=== PATIENT | female | born 1970 | race African-American/Black ===

== ENCOUNTER 2025-02-12 14:29 | Emergency (ER) | payer MEDICAID, SELFPAY ==
--- NOTE | ~2025-02-12 | XR_ITS ---
CLINICAL HISTORY: chest pain. coughing. pneumonia 1 view chest x-ray. Comparison: None Findings: No consolidation or effusion. Cardiac and mediastinal contours appear unremarkable. Bones unremarkable. Impression: 1. No acute pulmonary disease. This document has been electronically signed by: El Benitez MD on 02/12/2025 15:44:42
--- NOTE | 2025-02-12 14:31 | ECG_ITS ---
Test Reason : CHEST PAIN Blood Pressure : */* mmHG Vent. Rate : 74 BPM Atrial Rate : 74 BPM P-R Int : 146 ms QRS Dur : 84 ms QT Int : 386 ms P-R-T Axes : 62 57 35 degrees QTcB Int : 428 ms Normal sinus rhythm with sinus arrhythmia Normal ECG No previous ECGs available Referred By: Eladio Vizcaino Electronically Signed By: LILA DANG MD
[2025-02-12 14:50] VITALS: BP 150/77; PULSE 77; RESP 18; TEMP 36.6; O2SAT 100; BMI 28.1
--- NOTE | 2025-02-12 14:55 | ED_ITS ---
HPI - General Adult General Chief complaint: Chest Pain Stated complaint: CP, back pain, L ear pain, congestion, sob Time Seen by Provider: 02/12/25 16:52 Source: patient, family (Spouse) and deicer inspector pneumatic Mode of arrival: ambulatory Limitations: no limitations History of Present Illness ED Provider: DR. Gonzalez HPI narrative: A 54-year-old female came in today for evaluation of left ear pain, patient had a remote trauma to left ear at age of 13 left her with chronic left ear pain since she was 13 years old, pain lately has been worsening more severe, patient has not seen ENT doctor since then, presented today with left ear pain 10/10, unable to hear from her left ear, no drainage, no blood coming out of the left ear. No fever, chills. Patient declined having chest pain or abdominal pain around device is stated in triage's note. Related Data Previous Rx's ?Medication ?Instructions ?Recorded amoxicillin 875 mg-potassium 1 tab PO BID #20 tabs 12/29 clavulanate 125 mg tablet ciprofloxacin 0.2 %-hydrocortisone 3 drp otic (ear) le ft Q12H 7 days 02/12/25 1 % ear drops,suspension (Cipro HC) #10 mL Allergies Allergy/AdvReac Type Severity Reaction Status Date / Time No Known Allergies Allergy Verified 02/12/25 14:55 Review of Systems 2 Review of Systems: All other systems are reviewed and are negative Constitutional: Reports as per HPI and Reports no additional constitutional complaints Eyes: Reports as per HPI and Reports no additional eye complaints Reports system reviewed and no additional complaints, except as documented Cardiovascular: Reports as per HPI and Reports no additional cardiovascular complaints Respiratory: Reports as per HPI and Reports no additional respiratory complaints Gastrointestinal: Reports as per HPI and Reports no additional gastrointestinal complaints Genitourinary: Reports no additional female genitourinary complaints Musculoskeletal: Reports no additional musculoskeletal complaints Skin/Breast: Reports system reviewed and no additional complaints, except as docu Psychiatric: Reports no additional psychiatric complaints Endocrine: Reports no additional endocrine complaints Hematologic/Lymphatic: Reports no additional hematologic/lymphatic complaints Allergic/Immunologic: Reports no additional allergic/immunologic complaints Reports system reviewed and no additional complaints, except as documented and Reports Abnormal speech present PMFSH Social History Social History Smoked in Last 30 Days: Yes Use of substances other than those prescribed or required for medical reasons: No Advance Directives: No Advance Directives Information Provided: Yes Do you have a plan to hurt others: No Plan Patient : No Physical Exam ED Vital Signs: Vital Signs - 24 hr 02/12/25 14:50 02/12/25 15:42 02/12/25 17:43 Temperature 98 F 99.1 F 99.1 F Pulse Rate 77 78 78 Respiratory Rate 18 20 20 Blood Pressure 150/77 H 133/69 133/69 Pulse Oximetry 100 100 100 Oxygen Delivery Method Room Air Room Air Room Air BMI result Body Mass Index 28.1 Vital signs have been reviewed and appear to be correct. Blood pressure elevated. Heart rate normal. Respiratory rate normal. Temperature normal. Oxygen saturation normal. Appearance: Alert. Oriented X3. No acute distress. Head: Normal external exam. Normocephalic. Atraumatic. No Garza signs noted. No raccoon eyes noted Eyes: PERRLA. EOMI. Conjunctiva and sclera normal. Eyelids normal. ENT: Left ear exam: Erythema in external left ear canal, erythema of the left TM, no mastoid erythema or tenderness, no discharge or bleed. Pharynx normal. Uvula midline. Moist mucous membranes. No trismus noted. No drooling noted. No muffled voice noted. Neck: Normal inspection. Neck supple. FROM. No adenopathy. Thyroid Normal. No meningeal signs. No neck mass noted. CVS: Normal heart rate and rhythm. Heart sound normal. No murmurs noted. Pulses normal throughout. Respiratory: No respiratory distress. Painless inspiration. Breath sounds normal. No wheezes/rales/rhonchi noted. Chest nontender. No accessory muscle usage noted or decreased air movement noted. Abdomen: Soft and nontender. Bowel sounds normal in all 4 quadrants. No distention noted. No organomegaly noted. No visible injury noted. Back: No CVA tenderness. Full range of motion noted. Skin: Skin warm and dry. Normal skin color. Normal skin turgor. No rashes/lesions/lacerations noted. Extremities: No lower extremity edema. Extremities exhibit normal range of motion. Extremities nontender. Neuro: Oriented X 3. Cranial nerve exam: II-XII are grossly intact No motor deficit. No sensory deficit. Reflexes normal. Course Course Course Narrative: RME: 54-year-old female presents to ED for chest pain, coughing, ear pain, sore throat, body aches and chills. Patient states chest pain and mild shortness of breath. EKG radiating ordered. Labs x-ray ordered. Reevaluation(s) Reevaluation #1: 54-year-old female s/p chronic left ear pain presented with worsening of left ear pain. Physical exam is consistent with otitis externa given the complicated history of left ear pain since age of 13 will start the patient on Augmentin and Cipro otic suspension. NSAIDs, and to follow-up with ENT as an outpatient. Using the deicer inspector pneumatic service patient declined chest pain or abdominal pain however chest pain workup was initiated before I have seen the patient and is negative. Time: 17:10 Medications Administered Discontinued Medications Generic Name Dose Route Start Last Admin Trade Name Freq PRN Reason Stop Dose Admin Amoxicillin/Clavulanate Potassium 875 mg 02/12/25 17:05 02/12/25 17:33 Amoxicillin/Potassium Clav 875 Mg Tablet PO 02/12/25 17:06 875 mg ONCE ONE Administration Ibuprofen 800 mg 02/12/25 17:05 02/12/25 17:36 Ibuprofen 800 Mg Tablet PO 02/12/25 17:06 800 mg ONCE ONE Administration Medical Decision Making Differential Diagnosis Differential Diagnoses: The differential diagnosis associated with the presentation includes (Otitis media, otitis externa, mastoiditis, mastoiditis.) Admission/Observation Consideration of admission/observation: Escalation of care including admission/observation considered Lab Data MDM Lab Attestation statement: I reviewed the patient's lab results. 02/12/25 15:04 02/12/25 15:04 Labs: Lab Results 02/12/25 Range/Units 15:04 WBC 8.8 (4.8-10.8) X10*3/uL RBC 4.02 L (4.20-5.50) X10*6/uL Hgb 12.5 (12.0-16.0) g/dl Hct 37.4 (37.0-47.0) % MCV 93.0 (80.0-98.0) fL MCH 31.1 (27.0-33.0) pg MCHC 33.4 (31.0-35.0) g/dl RDW 13.2 (11.0-16.0) % Plt Count 323 (160-400) X10*3/uL MPV 9.3 L (9.4-12.3) fL Immature Gran % (Auto) 0.3 (0.0-0.4) % Neut % (Auto) 65.0 (45-73) % Lymph % (Auto) 23.1 (20-40) % [place] % (Auto) 3.2 (2-11) % Eos % (Auto) 7.5 H (0-4) % Baso % (Auto) 0.9 (0-2) % Lymph # (Auto) 2.0 (1.2-4.9) X10*3/uL [place] # (Auto) 0.3 (0.1-1.2) X10*3/uL Eos # (Auto) 0.7 H (0.0-0.4) X10*3/uL Baso # (Auto) 0.1 (0.0-0.2) X10*3/uL Abs Immat Gran (auto) 0.03 (0.00-0.03) X10*3/uL Absolute Neuts (auto) 5.8 (2.0-8.3) x10*3/uL Absolute Nucleated RBC 0.000 (0.0-0.012) X10*3/uL Nucleated RBC % (auto) 0.0 (0.0-0.2) /100WBC PT 11.7 (11.2-13.5) SEC INR 1.0 (0.9-1.1) APTT 26.6 L (26.7-34.1) SEC Sodium 142 (135-145) mmol/L Potassium 3.1 L (3.3-5.1) mmol/L Chloride 105 (96-108) mmol/L Carbon Dioxide 27 (22-29) mmol/L Anion Gap 13 (12-20) BUN 10 (9-16) mg/dL Creatinine 0.64 (0.5-1.4) mg/dL Estim Creat Clear Calc 119.0 Estimated GFR > 60 Random Glucose 129 H (60-115) mg/dL Calcium 8.8 (8.4-10.2) mg/dL Total Bilirubin 0.5 (0.0-1.0) mg/dL AST 28 (5-31) U/L ALT 16 (0-31) U/L Alkaline Phosphatase 63 (39-117) U/L Troponin I High Sens < 2.7 (<3.5-17.0) ng/L NT-Pro-B Natriuret Pep 244.2 (<300) pg/mL Total Protein 6.1 L (6.5-8.0) g/dL Albumin 3.6 (3.5-5.0) g/dL Influenza Type A (PCR) NEGATIVE (Negative) Influenza Type B (PCR) NEGATIVE (Negative) RSV RNA Qual (PCR) NEGATIVE (Negative) SARS-CoV-2 RNA (RT-PCR) NEGATIVE (Negative) S. pyogenes GrpA NANO Negative (Negative) Discharge Plan Discharge Clinical Impression: Otitis externa, Otitis media Patient Disposition: Home, Self-Care Instructions: Ear Infection (ED) Additional Instructions: Follow-up with your ENT doctor, take the antibiotic as prescribed and finish course. If you can not get to our ENT doctor contact your primary doctor and ask for referral. Prescriptions: New amoxicillin-pot clavulanate 875-125 mg tablet 1 tab PO BID Qty: 20 0RF Cipro HC 0.2-1 % drops,suspension 3 drp otic (ear) left Q12H 7 Days Qty: 10 0RF Referrals: Guzman Gonzalez [Physician, Ear, Nose, Throat] Suzi Rg PA-C [Primary Care Provider, Internal Medicine] Interventions: ED Discharge Assessment Last Done: 02/12/25 17:43 Discharge Date/Time: 02/12/25 17:49 Print Language: Zimbabwean
[2025-02-12 15:10] LABS: MANUAL DIFF FLAG NO
[2025-02-12 15:11] LABS: Hematocrit 37.4 % (37.0-47.0); Hemoglobin 12.5 g/dl (12.0-16.0); Imm Gran Abs Auto 0.03 X10*3/uL (0.00-0.03); Imm Gran Pct Auto 0.3 % (0.0-0.4); Lymphocytes Absolute Auto 2.0 X10*3/uL (1.2-4.9); Mean Corpuscular HGB Conc 33.4 g/dl (31.0-35.0); Mean Corpuscular Hemoglobin 31.1 pg (27.0-33.0); Mean Corpuscular Volume 93.0 fL (80.0-98.0); NRBC Abs Auto 0.000 X10*3/uL (0.0-0.012); NRBC Pct Auto 0.0 /100WBC (0.0-0.2); Platelet Count 323 X10*3/uL (160-400); Red Blood Count 4.02 X10*6/uL (4.20-5.50); White Blood Count 8.8 X10*3/uL (4.8-10.8)
[2025-02-12 15:18] LABS: IDNOW Serial# 55D5AD1C; Strep A Nucleic Acid Negative (Negative)
[2025-02-12 15:42] VITALS: BP 133/69; PULSE 78; RESP 20; TEMP 37.3; O2SAT 100
[2025-02-12 15:42] LABS: Troponin-I High Sensitivity < 2.7 ng/L (<3.5-17.0)
[2025-02-12 15:54] LABS: INTERNATIONAL NORM RATIO 1.0 (0.9-1.1); Prothrombin Time 11.7 SEC (11.2-13.5)
[2025-02-12 15:56] LABS: Partial Thromboplastin Time 26.6 SEC (26.7-34.1)
--- OUTSIDE RECORDS SUMMARY | 2025-02-12 16:07 | XMS_ITS | Clinical Summary ---
Author Organization [employer] Address [address] [place] [address] Care Team Providers Care Egg Smeller Name Role Phone Unavailable Primary Care Provider Unavailabl e Social History Tobacco Use Types Packs/Day Years Used Date Smoking Tobacco: Never Assessed Comments Unknown Sex and Gender Information Value Date Recorded Sex Assigned at Not on file Legal Sex Female 9:18 PM EDT Gender Identity Not on file Sexual Orientation Not on file Plan of Treatment Health Maintenance Due Date Last Done Comments CT Colonography 1971 Colonoscopy 1971 Colorectal Cancer Screening 1971 Depression Screening 1971 FIT DNA/Cologuard 1971 FIT 1971 FOBT 1971 Lipid Panel 1971 SDOH Screening 1971 Sigmoidoscopy 1971 Disability Screening 1971 Alcohol/Substance Use Screening 1983 Tobacco Screening 1983 Hepatitis C Screening 1989 Pap Smear 1992 Cervical Cancer Screening 2001 HPV/Cotest 2001 Mammogram 2011 Hepatitis B Vaccines (2 of 2 - CpG 2-dose series) 09/04/2023 08/07/2023 COVID-19 Vaccine (2024-2 6 season) 2024 07/25/2021, 09/15/2020, 08/18/2020 Influenza Vaccine (#1) 2024 DTaP/Tdap/Td Vaccines (2 - T d or Tdap) 06/13/2032 06/13/2022 RSV Patients and Patients Aged 60 years or older (1 - 1-dose 75+ series) 2046 HIV Screening Completed 06/13/2022 Pneumococcal Vaccine: 50+ Years Completed 06/13/2022 Zoster Vaccines Completed 11/16/2024, 08/07/2023 HIB Vaccines Aged Out No longer eligi ble based on patient's age to complete this topic HPV Vaccines Aged Out No longer eligi ble based on patient's age to complete this topic Hepatitis A Vaccines Aged Out No long er eligible based on patient's age to complete this topic IPV Vaccines Aged Out No longer eligi ble based on patient's age to complete this topic Meningococcal B Vaccine Aged Out No l onger eligible based on patient's age to complete this topic Meningococcal Vaccine Aged Out No loretta alyssa eligible based on patient's age to complete this topic RSV under 20 months Aged Out No longe r eligible based on patient's age to complete this topic Rotavirus Vaccines Aged Out No longer eligible based on patient's age to complete this topic
--- OUTSIDE RECORDS SUMMARY | 2025-02-12 16:07 | XMS_ITS | Clinical Summary ---
Author Organization [facility] Address [address] [place] [address] Phone Care Team Providers Care Legal Administrator Name Role Phone Physician, No Pcp Primary Care Provider Unavaila ble Social History Tobacco Use Types Packs/Day Years Used Date Smoking Tobacco: Never Assessed Comments Unknown Sex and Gender Information Value Date Recorded Sex Assigned at Not on file Legal Sex Female 11:13 PM EST Gender Identity Not on file Sexual Orientation Not on file Plan of Treatment Health Maintenance Due Date Last Done Comments Breast Cancer Screening 1971 Colorectal Cancer Screening: Colonoscopy 1971 Cervical Cancer Screening: P ap Smear 1992 HIV Screening 03/09/2022 Social Influencers of Health Screening 03/09/2022 Hepatitis B Vaccines (2 of 2 - CpG 2-dose series) 09/04/2023 08/07/2023 Zoster Vaccines (2 of 2) 10/02/2023 08/07/2023 Depression Screening 04/06/2024 Hypertension/CHF/CAD Annual BMP Blood Test 09/14/2024 COVID-19 Vaccine (4 - 2024-2 6 season) 2024 07/25/2021, 09/15/2020, 08/18/2020 Influenza Vaccine (#1) 2024 Cholesterol Screening (Lipid Panel) 06/14/2027 06/13/2022 DTaP,Tdap,and Td Vaccines (2 - Td or Tdap) 06/13/2032 06/13/2022 RSV Immunization Adult Patients (1 - 1-dose 75+ series) 2046 Hepatitis C Screening Completed 06/13/2022 Pneumococcal Vaccine: 50+ Years Completed 06/13/2022 HIB Vaccines Aged Out No longer eligi [...] on patient's age to complete this topic MMR Vaccines Aged Out No longer eligi ble based on patient's age to complete this topic Meningococcal ACWY Vaccine Aged Out N o longer eligible based on patient's age to complete this topic Meningococcal B Vaccine Aged Out No l onger eligible based on patient's age to complete this topic RSV Immunization Patients Under 20 months Aged Out No longer eligible b ased on patient's age to complete this topic Varicella Vaccines Aged Out No longer eligible based on patient's age to complete this topic Insurance MEDICAID - [place] Care Teams Legal Administrator Relationship Specialty Start Date End Date Physician, No Pcp PCP - General 09/14/24
[2025-02-12 16:16] LABS: Resp Syncy Virus RNA Qual PCR NEGATIVE (Negative); SARS COV2 PCR INHOUSE NEGATIVE (Negative)
[2025-02-12 17:43] VITALS: BP 133/69; PULSE 78; RESP 20; TEMP 37.3; O2SAT 100
[2025-02-12 18:09] LABS: NT Pro B Type Natriuretic Pept 244.2 pg/mL (<300)
[2025-02-12 19:13] LABS: Alanine Aminotransferase 16 U/L (0-31); Albumin Level 3.6 g/dL (3.5-5.0); Alkaline Phosphatase 63 U/L (39-117); Anion Gap 13 (12-20); Aspartate Amino Transferase 28 U/L (5-31); Blood Urea Nitrogen 10 mg/dL (9-16); Calcium 8.8 mg/dL (8.4-10.2); Carbon Dioxide 27 mmol/L (22-29); Chloride 105 mmol/L (96-108); Creatinine Clr Calc Pharmacy 119.0; Estimated Glomerular Filt Rate > 60; Potassium 3.1 mmol/L (3.3-5.1); Sodium 142 mmol/L (135-145); Total Protein 6.1 g/dL (6.5-8.0)
== END 2025-02-12 17:49 | disposition home or self-care (01) ==
PROVIDERS: Physician Assistant; Emergency Provider Emergency Medicine; PCP Physician Assistant
DX: H60.92 Unspecified otitis externa, left ear (principal); H66.92 Otitis media, unspecified, left ear; R07.89 Other chest pain; H92.02 Otalgia, left ear; I49.8 Other specified cardiac arrhythmias; R09.89 Other specified symptoms and signs involving the circulatory and respiratory systems; R06.02 Shortness of breath; Z03.818 Encounter for observation for suspected exposure to other biological agents ruled out; Z79.899 Other long term (current) drug therapy
CPT/HCPCS: 36415; 71045; 80053; 83880; 84484; 85025; 85610; 85730; 87637; 87651; 93005; 99283; 99285

== ENCOUNTER → 2025-02-12 14:31 | Outpatient (BNV) | payer MEDICAID, SELFPAY | PROVIDERS: Emergency Provider Emergency Medicine; PCP Physician Assistant; Visit Provider Internal Medicine Cardiovascular Disease | DX: R07.9 Chest pain, unspecified (principal) | CPT/HCPCS: 93010 ==

== ENCOUNTER → 2025-02-12 14:51 | Outpatient (BNV) | payer MEDICAID, SELFPAY | PROVIDERS: PCP Physician Assistant; Visit Provider Radiology Diagnostic Radiology | DX: R07.9 Chest pain, unspecified (principal); R05.9 Cough, unspecified; J18.9 Pneumonia, unspecified organism | CPT/HCPCS: 71045 ==

== ENCOUNTER 2025-02-26 00:14 | Emergency (ER) | payer MEDICAID, SELFPAY ==
[2025-02-26 00:20] VITALS: BP 153/81; PULSE 84; RESP 20; TEMP 36.8; O2SAT 98; BMI 28.1
--- OUTSIDE RECORDS SUMMARY | 2025-02-26 00:40 | XMS_ITS | Clinical Summary ---
Author Organization [employer] Address [address] [facility] [address] [place] [address] Care Team Providers Care Air Conditioning Equipment Mechanic Name Role Phone Unavailable Primary Care Provider [...]
--- OUTSIDE RECORDS SUMMARY | 2025-02-26 00:40 | XMS_ITS | Clinical Summary ---
Author Organization [facility] Address [address] [place] [address] Phone Care Team Providers Care Dull Coat Mill Operator Name Role Phone Physician, No Pcp Primary [...] topic Insurance MEDICA[place] - [place] Care Teams Dull Coat Mill Operator Relationship Specialty Start Date End Date Physician, No Pcp PCP - General 09/14/24
[2025-02-26 01:46] LABS: Resp Syncy Virus RNA Qual PCR NEGATIVE (Negative); SARS COV2 PCR INHOUSE NEGATIVE (Negative)
--- NOTE | 2025-02-26 02:11 | ED_ITS ---
HPI - General Adult General Chief complaint: Ear Problems Stated complaint: General Medical Time Seen by Provider: 02/26/25 01:21 Source: patient Limitations: language barrier History of Present Illness ED Provider: Kalpana Decker PA-C HPI narrative: 54-year-old female presents with bilateral ear pain x1 day. Patient just completed treatment for both otitis externa and otitis media of the left ear. She has since developed bilateral ear discomfort. Denies headache or fever. Related Data Previous Rx's ?Medication ?Instructions ?Recorded amoxicillin 875 mg-potassium 1 tab PO BID #20 tabs 12/29 clavulanate 125 mg tablet ciprofloxacin 0.2 %-hydrocortisone 3 drp otic (ear) le ft Q12H 7 days 02/12/25 1 % ear drops,suspension (Cipro HC) #10 mL cetirizine 10 mg capsule 10 mg PO DAILY #20 caps 02/05 06/28 Allergies Allergy/AdvReac Type Severity Reaction Status Date / Time No Known Allergies Allergy Verified 02/26/25 00:23 Review of Systems Review of Systems: Yes all other systems are reviewed and are negative Constitutional: Constitutional: Denies fatigue, Denies fever(s) and Denies headache(s) ENT: Reports otalgia, Denies headache(s), Denies nasal congestion and Denies sore throat Cardiovascular: Cardiovascular: Denies chest pain Gastrointestinal: Gastrointestinal: Denies nausea and Denies vomiting Neurologic: Denies headache(s) Endocrine: Endocrine: Denies fatigue PMFSH Past Medical History Attestation statement: The following information was validated with the patient. Social History Social History Smoked in Last 30 Days: No Use of substances other than those prescribed or required for medical reasons: No Advance Directives: No Advance Directives Information Provided: Yes Patient : No Physical Exam ED Vital Signs: Vital Signs - 24 hr 02/26/25 00:20 02/26/25 02:24 Temperature 98.2 F 98.2 F Pulse Rate 84 84 Respiratory Rate 20 20 Blood Pressure 153/81 H 153/81 H Pulse Oximetry 98 98 Oxygen Delivery Method Room Air Room Air BMI result Body Mass Index 28.1 Const Other: Sleeping, easily woken with verbal stimuli Orientation/consciousness: patient oriented x3 HENMT Other: No tragal tenderness bilaterally, bilateral TMs are dull, no overlying erythema, no erythema or exudate in the external ear canals, no erythema warmth swelling or pain noted over bilateral mastoid bones Resp Effort & Inspection: normal respiratory effort Cardio Other: Normal peripheral perfusion Skin Other: Warm dry no rash Neuro General: patient oriented x3, gait normal, no focal motor deficits and CN's II- XI intact bilaterally Psych Other: Cooperative Medical Decision Making Medical Decision Making [facility] Narrative: 54-year-old female presents with bilateral ear pain x1 day. Patient just completed treatment for both otitis externa and otitis media of the left ear. She has since developed bilateral ear discomfort. Denies headache or fever. No chronic issues History: Per patient I have considered the following differential diagnoses: Otitis externa, otitis media, serous otitis, mastoiditis , malignant otitis externa Plan: There was no evidence of infection, the patient has residual serous otitis. No concern for mastoiditis based on my exam. We will send with home care instructions no indication for imaging. Viral panel ordered from triage and remains negative I have independently reviewed the following tests: Labs: Viral panel negative Differential Diagnosis Differential Diagnoses: The differential diagnosis associated with the presentation includes See [facility] Admission/Observation Consideration of admission/observation: Escalation of care including admission/observation considered Not applicable Lab Data [facility] Lab Attestation statement: I reviewed the patient's lab results. Labs: Lab Results 02/26/25 Range/Units 01:04 Influenza Type A (PCR) NEGATIVE (Negative) Influenza Type B (PCR) NEGATIVE (Negative) RSV RNA Qual (PCR) NEGATIVE (Negative) SARS-CoV-2 RNA (RT-PCR) NEGATIVE (Negative) Discharge Plan Discharge Clinical Impression: Serous otitis media Patient Disposition: Home, Self-Care Instructions: Fluid In The Ear (Serous Otitis Media) (ED) Additional Instructions: You have fluid within the inner ears, this is consistent with the congestion. This is not an ear infection. Use the Zyrtec daily, to help alleviate the congestion. Follow up with your primary care provider as needed. You were tested for influenza COVID and RSV, the viral panel was negative. Prescriptions: New cetirizine 10 mg capsule 10 mg PO DAILY Qty: 20 0RF No Action amoxicillin-pot clavulanate 875-125 mg tablet 1 tab PO BID Qty: 20 0RF Cipro HC 0.2-1 % drops,suspension 3 drp otic (ear) left Q12H 7 Days Qty: 10 0RF Interventions: ED Discharge Assessment Last Done: 02/26/25 02:24 Discharge Date/Time: 02/26/25 02:24 Print Language: Beninese
--- NOTE | 2025-02-26 02:15 | PC.NURSE ---
swab collected, provider into see pt, awaiting disposition.
--- NOTE | 2025-02-26 02:23 | PC.NURSE ---
reviewed discharge instruction with pt. pt verbalized understanding, no sign od distress upon discharge. pt had a steady gait.
[2025-02-26 02:24] VITALS: BP 153/81; PULSE 84; RESP 20; TEMP 36.8; O2SAT 98
== END 2025-02-26 02:24 | disposition home or self-care (01) ==
PROVIDERS: Emergency Provider Emergency Medicine; PCP Physician Assistant
DX: H65.93 Unspecified nonsuppurative otitis media, bilateral (principal); Z03.818 Encounter for observation for suspected exposure to other biological agents ruled out
CPT/HCPCS: 87637; 99283; 99284

== ENCOUNTER 2025-03-09 10:00 | Emergency (ER) | payer MEDICAID, SELFPAY ==
[2025-03-09 10:09] VITALS: BP 193/110; PULSE 97; RESP 16; TEMP 36.6; O2SAT 99; BMI 27.9
--- NOTE | 2025-03-09 10:23 | ED_ITS ---
HPI - General Adult General Chief complaint: Ear Problems Stated complaint: L ear pain Time Seen by Provider: 03/09/25 11:50 Source: patient Mode of arrival: ambulatory Limitations: no limitations History of Present Illness ED Provider: Eladio Vizcaino HPI narrative: 54-year-old female with pmh of HTN and chronic left ear pain/infections preesnts to the ED for nasal congestoin and left ear pain for three days. patient states no chest pain, shortness of breath, hedache, dizziness, chest pain, shortness of vreath Related Data Previous Rx's ?Medication ?Instructions ?Recorded amoxicillin 875 mg-potassium 1 tab PO BID #20 tabs 12/29 clavulanate 125 mg tablet ciprofloxacin 0.2 %-hydrocortisone 3 drp otic (ear) le ft Q12H 7 days 02/12/25 1 % ear drops,suspension (Cipro HC) #10 mL cetirizine 10 mg capsule 10 mg PO DAILY #20 caps 02/05 06/28 amoxicillin 875 mg-potassium 1 tab PO Q12H 10 days #20 tabs 03/09/25 clavulanate 125 mg tablet naproxen 500 mg tablet 500 mg PO BID PRN pain #14 t abs 03/09/25 triamcinolone acetonide 55 mcg 2 spray intranasal VINCENT Y 5 days 03/09/25 nasal spray aerosol (Nasacort) #16.9 mL Allergies Allergy/AdvReac Type Severity Reaction Status Date / Time No Known Allergies Allergy Verified 03/09/25 10:09 Review of Systems Review of Systems: left ear pain/nasal congestion Yes all other systems are reviewed and are negative [facility] Social History Social History Advance Directives: No Advance Directives Information Provided: No Physical Exam ED Vital Signs: Vital Signs - 24 hr 03/09/25 10:09 03/09/25 12:10 Temperature 98 F Pulse Rate 97 88 Respiratory Rate 16 20 Blood Pressure 193/110 H 140/70 H Pulse Oximetry 99 97 Oxygen Delivery Method Room Air Room Air BMI result Body Mass Index 27.9 Const General: cooperative, healthy appearing, comfortable, no acute distress, well developed, alert, awake and Physically active HENMT Head: Yes normal to inspection, Yes No palpable skull fracture present, Yes normocephalic and Yes atraumatic Ears: hearing grossly normal bilaterally, external ears normal, EAC's normal, mastoids normal, no periauricular adenopathy and TM abnormal bulging on the right and erythematous on the right Throat: Yes posterior oropharynx normal, Yes tonsils normal and Yes uvula midline Eyes General: appearance normal, both eyes and all related structures Neck Neck: Yes normal visual inspection, Yes full ROM, Yes no lymphadenopathy, Yes no meningeal signs, Yes trachea midline, Yes supple, No anterior neck swelling and No tender Chest Chest palpation & inspection: normal inspection of the chest and normal palpatio n of entire chest wall Resp Effort & Inspection: normal respiratory effort and able to speak in complete sentences Auscultation: clear to auscultation bilaterally Cardio Jugular venous distension: no JVD Heart sounds: S1 normal heart sound present and S2 normal heart sound present GI Inspection: Yes normal to inspection Palpation (GI): Soft to palpation, not firm, nontender, no guarding and not rigid General: Yes no CVA tenderness Back/Spine/Pelvis Back: no CVA tenderness and No back tenderness Skin General skin exam: no rashes or lesions noted, elasticity normal and turgor normal Neuro General: gait normal, tone normal, moves all extremities, Normal light touch and pain sensation, no meningeal signs, no focal motor deficits and CN's II-XI intact bilaterally Extrem General: Yes normal to inspection, Yes full ROM and Yes capillary refill normal Psych Appearance: grossly normal, well kempt and not disheveled Course Course Course Narrative: RME: 54 yold female presents to the ED for left ear pain that is been constant for months. patient states no trauma. swabs ordered. Medical Decision Making Medical Decision Making [facility] Narrative: 54 yold female with URI symptoms and left ear pain. ear exam shows oitis media. patient expalined importance for follow up [facility] [place] [facility]. patient explained worrisome signs. negative for mastoiditits, cancer, brain bleed, pneumonia, or any other concerning symptoms. Differential Diagnosis Differential Diagnoses: The differential diagnosis associated with the presentation includes (covid, infleunza, otisimedia, mastoiditits) Admission/Observation Consideration of admission/observation: Escalation of care including admission/observation considered Lab Data [facility] Lab Attestation statement: I reviewed the patient's lab results. Labs: Lab Results 03/09/25 Range/Units 10:34 COVID-19 (MARC) Negative (Negative) COVID-19 Clin Com See Note Influenza Type A (NANO) Negative (Negative) Influenza Type B (NANO) Negative (Negative) Influenza A & B Note See Note S. pyogenes GrpA NANO Negative (Negative) Independent Historian Clinical information obtained from an independent historian. History obtained from or confirmed by: Other (patinet) Prescription Management I considered prescription management with: Pain Medication and Antibiotic Discharge Plan Discharge Clinical Impression: Otitis media, Sinusitis Patient Disposition: Home, Self-Care Instructions: Sinusitis (ED), Ear Infection (ED) Additional Instructions: Recommend follow up with primary care provider. Return to the ED for any swelling of the ear, redness, chest pain, shortness of breath, drooling, change in voice, or any other concerning symptoms. Prescriptions: New amoxicillin-pot clavulanate 875-125 mg tablet 1 tab PO Q12H 10 Days Qty: 20 0RF naproxen 500 mg tablet 500 mg PO BID PRN (Reason: pain) Qty: 14 0RF triamcinolone acetonide [Nasacort] 55 mcg aerosol,spray 2 spray intranasal DAILY 5 Days Qty: 16.9 0RF Rx Instructions: administer into each nostril No Action amoxicillin-pot clavulanate 875-125 mg tablet 1 tab PO BID Qty: 20 0RF Cipro HC 0.2-1 % drops,suspension 3 drp otic (ear) left Q12H 7 Days Qty: 10 0RF cetirizine 10 mg capsule 10 mg PO DAILY Qty: 20 0RF Referrals: [facility] [Provider Group, Ear, Nose, Throat] - 2 days Referral Note: recurrent left ear infection Clinical Impression: Otitis media Stand Alone Forms: Work/School Release Interventions: ED Discharge Assessment Last Done: 03/09/25 12:35 Discharge Date/Time: 03/09/25 12:36 Print Language: Cymraes
[2025-03-09 10:54] LABS: IDNOW Serial# 08D9AD1C; Strep A Nucleic Acid Negative (Negative)
[2025-03-09 11:00] LABS: COVID-19 Test Negative (Negative); IDNOW Serial# 55D5AD1C; IDNOW Serial# 58CA691E; Influenza B2 Negative (Negative)
[2025-03-09 12:10] VITALS: BP 140/70; PULSE 88; RESP 20; O2SAT 97
[2025-03-09 12:35] VITALS: BP 140/70; PULSE 88; RESP 20; TEMP -17.7; TEMP 0; O2SAT 97
== END 2025-03-09 12:36 | disposition home or self-care (01) ==
PROVIDERS: Physician Assistant; Emergency Provider Emergency Medicine; PCP Physician Assistant
DX: H66.92 Otitis media, unspecified, left ear (principal); I10 Essential (primary) hypertension; Z79.899 Other long term (current) drug therapy
CPT/HCPCS: 87502; 87635; 87651; 99282; 99283

== ENCOUNTER 2025-03-19 05:28 | Emergency (ER) | payer MEDICAID, SELFPAY ==
[2025-03-19 05:35] VITALS: BP 187/91; PULSE 87; RESP 20; TEMP 36.1; O2SAT 95; BMI 25.1
--- NOTE | 2025-03-19 06:38 | ED.EAR ---
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 Gonzalez HPI Narrative: 54-year-old female came in today with her significant other for evaluation of bilateral ear pain left more than right, patient had a remote trauma to left ear at age of 13 left her with chronic left ear pain since she was 13 years old, pain usually start in the left ear then triggered the right ear pain pain usually is very severe and chronic, there is a chronic hair loss in the left ear, no drain, no blood coming out of the left or right ear, no fever, no chills, no recent swimming. Patient is awaiting of ENT transfer from her PCP. Related Data Previous Rx's ?Medication ?Instructions ?Recorded amoxicillin 875 mg-potassium 1 tab PO BID #20 tabs 02/12/25 clavulanate 125 mg tablet ciprofloxacin 0.2 %-hydrocortisone 3 drp otic (ear) left Q12H 7 days 02/12/25 1 % ear drops,suspension (Cipro HC) #10 mL cetirizine 10 mg capsule 10 mg PO DAILY #20 caps 02/26/25 amoxicillin 875 mg-potassium 1 tab PO Q12H 10 days #20 tabs 03/09/25 clavulanate 125 mg tablet naproxen 500 mg tablet 500 mg PO BID PRN pain #14 tabs 03/09/25 triamcinolone acetonide 55 mcg 2 spray intranasal DAILY 5 days 03/09/25 nasal spray aerosol (Nasacort) #16.9 mL ibuprofen 800 mg tablet 800 mg PO Q8H PRN pain #14 tabs 03/19/25 oxycodone 5 mg tablet 5 mg PO TID PRN pain #5 tabs 03/19/25 Allergies Allergy/AdvReac Type Severity Reaction Status Date / Time No Known Allergies Allergy Verified 03/19/25 05:37 Review of Systems Review of Systems: All other systems are reviewed and are negative Constitutional: Reports as per HPI and Reports no additional constitutional complaints Eyes: Reports as per HPI and Reports no additional eye complaints Reports system reviewed and no additional complaints, except as documented Cardiovascular: Reports as per HPI and Reports no additional cardiovascular complaints Respiratory: Reports as per HPI and Reports no additional respiratory complaints Gastrointestinal: Reports as per HPI and Reports no additional gastrointestinal complaints Genitourinary: Reports no additional female genitourinary complaints Musculoskeletal: Reports no additional musculoskeletal complaints Skin/Breast: Reports system reviewed and no additional complaints, except as docu Psychiatric: Reports no additional psychiatric complaints Endocrine: Reports no additional endocrine complaints Hematologic/Lymphatic: Reports no additional hematologic/lymphatic complaints Allergic/Immunologic: Reports no additional allergic/immunologic complaints Reports system reviewed and no additional complaints, except as documented and Reports Abnormal speech present [facility] Social History Social History Advance Directives: No Advance Directives Information Provided: No Do you have a plan to hurt others: No Plan Physical Exam Vital Signs: Vital Signs: Last Vital Signs Temp 97.0 F 03/19/25 05:35 Pulse 87 03/19/25 05:35 Resp 20 03/19/25 05:35 BP 187/91 H 03/19/25 05:35 Pulse Ox 95 03/19/25 05:35 O2 Del Method Room Air 03/19/25 05:35 BMI result Body Mass Index 25.1 Vital signs have been reviewed and appear to be correct. Blood pressure elevated. Heart rate normal. Respiratory rate normal. Temperature normal. Oxygen saturation normal. Appearance: Alert. Oriented X3. No acute distress. Head: Normal external exam. Normocephalic. Atraumatic. No Garza signs noted. No raccoon eyes noted Eyes: PERRLA. EOMI. Conjunctiva and sclera normal. Eyelids normal. ENT: TM's Normal. Pharynx normal. Uvula midline. Moist mucous membranes. No trismus noted. No drooling noted. No muffled voice noted. Neck: Normal inspection. Neck supple. FROM. No adenopathy. Thyroid Normal. No meningeal signs. No neck mass noted. CVS: Normal heart rate and rhythm. Heart sound normal. No murmurs noted. Pulses normal throughout. Respiratory: No respiratory distress. Painless inspiration. Breath sounds normal. No wheezes/rales/rhonchi noted. Chest nontender. No accessory muscle usage noted or decreased air movement noted. Abdomen: Soft and nontender. Bowel sounds normal in all 4 quadrants. No distention noted. No organomegaly noted. No visible injury noted. Back: No CVA tenderness. Full range of motion noted. Skin: Skin warm and dry. Normal skin color. Normal skin turgor. No rashes/lesions/lacerations noted. Extremities: No lower extremity edema. Extremities exhibit normal range of motion. Extremities nontender. Neuro: Oriented X 3. Cranial nerve exam: II-XII are grossly intact No motor deficit. No sensory deficit. Reflexes normal. Course Reevaluation(s) Reevaluation #1: Acute on chronic bilateral ear pain is likely due to chronic serous otitis media patient will require to be evaluated by ENT, instructed to follow-up with her PCP and get an ENT referral. Since patient feels better with oxycodone will prescribe a few pills for oxycodone to be used for only severe pain. No indication for antibiotic start at this point. Time: 08:00 Medical Decision Making Differential Diagnosis Differential Diagnoses: The differential diagnosis associated with the presentation includes ( Acute otitis media, acute otitis externa, chronic serous otitis media, chronic ear pain.) Admission/Observation Consideration of admission/observation: Escalation of care including admission/observation considered Discharge Plan Discharge Clinical Impression: Otalgia of both ears Patient Disposition: Home, Self-Care Prescriptions: New oxycodone 5 mg tablet 5 mg PO TID PRN (Reason: pain) Qty: 5 0RF Rx Instructions: Partial Fill upon patient request. ibuprofen 800 mg tablet 800 mg PO Q8H PRN (Reason: pain) Qty: 14 0RF No Action amoxicillin-pot clavulanate 875-125 mg tablet 1 tab PO BID Qty: 20 0RF Cipro HC 0.2-1 % drops,suspension 3 drp otic (ear) left Q12H 7 Days Qty: 10 0RF amoxicillin-pot clavulanate 875-125 mg tablet 1 tab PO Q12H 10 Days Qty: 20 0RF naproxen 500 mg tablet 500 mg PO BID PRN (Reason: pain) Qty: 14 0RF triamcinolone acetonide [Nasacort] 55 mcg aerosol,spray 2 spray intranasal DAILY 5 Days Qty: 16.9 0RF Rx Instructions: administer into each nostril cetirizine 10 mg capsule 10 mg PO DAILY Qty: 20 0RF Referrals: Suzi Rg PA-C [Primary Care Provider, Internal Medicine] [facility] [Provider Group, Ear, Nose, Throat] Print Language: Bruneian
[2025-03-19] MEDS: oxyCODONE HCl Immed Release 5 MG TABLET PO (06:39)
[2025-03-19 07:15] VITALS: BP 187/91; PULSE 87; RESP 20; TEMP 36.1; O2SAT 95
== END 2025-03-19 07:16 | disposition home or self-care (01) ==
PROVIDERS: Emergency Provider Emergency Medicine; PCP Physician Assistant
DX: H92.03 Otalgia, bilateral (principal)
CPT/HCPCS: 99283